=== PATIENT | male | born 1965 | race Caucasian/White ===

== ENCOUNTER 2019-11-25 20:57 | Inpatient (IN) | payer OTHER, SELFPAY ==
[2019-11-25 21:24] VITALS: BMI 38.7
[2019-11-25 21:26] VITALS: BP 131/75; PULSE 70; RESP 18; TEMP 36.6; O2SAT 96
[2019-11-25 22:10] VITALS: BP 128/77; PULSE 73; RESP 18; TEMP 36.6; O2SAT 97; BMI 38.8
[2019-11-25] MEDS: Atorvastatin Calcium 80 MG Tablet PO (22:17)
[2019-11-25] MEDS: Carvedilol 25 MG Tablet PO (22:17)
[2019-11-25] MEDS: traZODone 50 MG Tablet PO (22:17)
[2019-11-25] MEDS: Senna/Docusate Sodium 1 Tablet 2 TABLET PO (22:18)
[2019-11-25 22:30] VITALS: PULSE 73; BMI 38.7
[2019-11-25] MEDS: hydrALAZINE 25 MG Tablet PO (22:30)
[2019-11-25] MEDS: MELATONIN 10 MG TABLET 5 MG PO (22:31)
[2019-11-26] VITALS (8 sets, daily range): BP systolic 129–163; BP diastolic 75–109; PULSE 58–66; RESP 18; TEMP 36.5–36.8; O2SAT 94–98; BMI 38.7
[2019-11-26 05:44] LABS: Hematocrit 47.1 % (40-54); Hemoglobin 15.1 g/dL (13.0-16.5); Mean Corp Hgb Conc 32.1 g/dL (32-36); Mean Corpuscular Hgb 31.7 pg (27.0-32.0); Mean Corpuscular Volume 98.9 fL (80-94); Mean Platelet Vol. 9.4 fl (6.2-12.0); Platelet Count 199 K/mm3 (150-450); RBC Distribution Width CV 13.4 % (11.6-14.6); RBC Distribution Width SD 48.8 fl (35.1-43.9); Red Blood Count 4.76 M/mm3 (4.6-6.2); White Blood Count 6.8 K/mm3 (4.4-11.0)
[2019-11-26 06:12] LABS: AST(SGOT) 27 U/L (15-37); Alanine Aminotransfer ALT/SGPT 53 U/L (16-61); Alkaline Phosphatase 86 U/L (45-117); Anion Gap 8 (5-15); BUN 39 mg/dL (7-18); BUN/Creat Ratio 25.7 RATIO (10-20); Calcium,Total 8.2 mg/dL (8.5-10.1); Chloride 107 mmol/L (98-107); Creatinine, Serum 1.52 mg/dL (0.70-1.30); EST Glomerular Filtration Rate 51 mL/min (>60); Est Glom Filt Rate - Afr Amer 61 mL/min (>60); Estimated Creatinine Clearance 56.03 ml/min; Globulin 2.9 g/dL (2.2-4.2); Glucose 105 mg/dL (74-106); Magnesium 2.2 mg/dL (1.6-2.6); Phosphorus 4.4 mg/dL (2.5-4.9); Potassium 2.9 mmol/L (3.5-5.1); Protein, Total 5.9 g/dL (6.4-8.2); Sodium Level 144 mmol/L (136-145)
[2019-11-26] MEDS: hydrALAZINE 25 MG Tablet PO ×3 (06:13→21:59)
--- NOTE | 2019-11-26 07:39 | HP.PCM_ITS ---
Problem List (1) Debility Status: Acute Comment: due to R cerebellar hemorraghic CVA (2) Right-sided nontraumatic intracerebral hemorrhage of cerebellum Status: Acute (3) CVA (cerebral vascular accident) Status: Chronic Comment: 2013 (4) Cardiomyopathy Status: Chronic Comment: 35-40% EF with left ventricular dilatation. + Wall motion abnormalities (5) CAD (coronary artery disease) Status: Chronic Qualifiers: Coronary Disease-Associated Artery/Lesion type: hamilton artery (6) Obesity (BMI 30-39.9) Status: Chronic (7) Chronic renal failure, stage 3 (moderate) Status: Chronic (8) Obstructive sleep apnea Status: Chronic Comment: non-compliant with PAP as an OP (9) Tremor Status: Chronic (10) Mild concentric left ventricular hypertrophy (LVH) Status: Chronic (11) Mild diastolic dysfunction Status: Chronic (12) Hypokalemia Status: Acute (13) Abnormal MRI of head Status: Acute Comment: 11/22/19 R cerebellar hemorrhage 1.6cm. Moderate cerebral atrophy and small vessel ischemic chnages of the supratentorial white matter with chronic pontine and left thalamic infarcts. History of Present Illness Date of Admission: 11/25/19 Chief Complaint: debiliity due to R cerebellar hemorrhagic CVA on 11/21/19 The patient is a 54 year old M with a past medical history of hypertension, cardiomyopathy, coronary artery disease, hypertension, obesity, chronic renal failure stage III, LATRICIA, left ventricular hypertrophy, mild diastolic dysfunction, tremor, tobacco dependence, marijuana usage and alcohol use who was admitted to the inpatient rehab unit at [facility] on 11/25/2019 with debility secondary to a hemorrhagic right cerebellar CVA on 11/21/2019. He will have therapy for > 3 hours a day to restore him at or near his prior level of Function. Tells me that he had an AK after the stroke in 2012. Has not seen a actuarial science professor and has not had a stress. It sounds like a cath was attempted and the vein was too narrow? He has a diagnosis of LATRICIA but, he has not tried CPAP because he does not think he can sleep with a mask on his face and he does not want to be bothered by cleaning it. We discussed the shelter complications with untreated sleep apnea and also the things that could be happening now. I told him that with untreated LATRICIA patients are at risk for strokes, depression, weight gain, chronic fatigue, addictions, RLS, etc. I explained that some people with sleep apnea use nasal pillows.....he said he would be willing to try. Will refer for a sleep study after DC and have him follow up with pulmonary. He will also need to follow up with cardiology for a pharmacologic stress test. Past Medical History Past Medical History (Chronic Problems): Chronic Problems CVA (cerebral vascular accident) (Chronic) 2012 Cardiomyopathy (Chronic) 35-40% EF with left ventricular dilatation. + Wall motion abnormalities CAD (coronary artery disease) (Chronic) Obesity (BMI 30-39.9) (Chronic) Chronic renal failure, stage 3 (moderate) (Chronic) Obstructive sleep apnea (Chronic) non-compliant with PAP as an OP Tremor (Chronic) Mild concentric left ventricular hypertrophy (LVH) (Chronic) Mild diastolic dysfunction (Chronic) Allergies No Known Allergies Allergy (Verified 11/25/19 21:28) Psychiatric History: No pertinent psych hx Lives: Alone, - - he is and he has 2 daughters Smoking Status: Former smoker - quit in 2012 Tobacco Use: Cigarettes Alcohol: Heavy - he drinks 1 beer a day when he gets home from work. Drugs: Marijuana - usually once a day at work to calm me down - *Family History Maternal History Items: - - his mother was bipolar and she committed suicide Paternal History Items: Cancer - Tray does not know the primary site. Father also had a dysrhythmia, - - Paternal grandmother had a stroke and the paternal grandfather had psychosis. Sibling History Items: - - he has 2 sisters with bipolar disorder and 1 brother who is an alcoholic and may be bipolar also. Heart disease runs in the family. Review of Systems Constitutional: Denies: Anorexia, Chills, Fever, Malaise, Weight Change Eyes: Denies: Blurred vision, Vision Change HEENT: Denies: Difficulty Hearing, Difficulty Swallowing, Head Aches, Nasal Congestion, Post Nasal Drip, Sinus Congestion, Sinus Drainage, Sore Throat Cardiovascular: Denies: Chest Pain, Chest Pressure, Chest Tightness, Edema, Light Headedness, Palpitations, Syncope Respiratory: Denies: Cough, Shortness of breath at rest, Sputum production Gastrointestinal: Denies: Abdominal Pain, Constipation, Diarrhea, Dyspepsia, Nausea, Vomiting Genitourinary: Reports: Nocturia - every 2 hours at night. Denies: Dysuria, Frequency, Incontinence Musculoskeletal: Reports: - - his Right leg and arm feel tight. Denies: Joint Pain, Joint Tenderness Skin: Denies: Dryness, Jaundice, Rash, Skin Changes, Wounds Neurological: Reports: Numbness - his right face, arm and leg have been numb since the stroke in 2012. His gait has not been normal sinvce the stroke in 2013 but he is able to compensate. He does not use an AD and his co-workers make fun of his walking. He is still employed corporate accountant as a slag worker., Tremor. Denies: Focal weakness, Tingling, Seizures Psychiatric: Denies: Anxiety, Depression, Homicidal Ideations, Suicidal Ideations Endocrine: Denies: Heat/ Cold Intolerance, Polydipsia, Hx of Irradiation, Hx of Thyroiditis Hematologic/ Lymphatic: Denies: Easy Bruising, Easy Bleeding, Hx of blood clot VTE Information - Inpt Only VTE Present on Admission: No VTE Mechan Device Prophylaxis: SCD's - pt declined to wear the SCD's...not on pharmocologic DVT prophylaxis due to hemorrhagic CVA, Knee High JONELLE Hose Patient Problems: Active and Suspected Problems Debility (Acute) due to R cerebellar hemorraghic CVA Right-sided nontraumatic intracerebral hemorrhage of cerebellum (Acute) Hypokalemia (Acute) Abnormal MRI of head (Acute) 11/22/19 R cerebellar hemorrhage 1.6cm. Moderate cerebral atrophy and small vessel ischemic chnages of the supratentorial white matter with chronic po ntine and left thalamic infarcts. - Physical Exam Vitals/I&O's: Vital Signs Temp Pulse Resp BP Pulse Ox 97.7 F L 58 L 18 137/75 H 94 11/26/19 07:26 11/26/19 07:26 11/26/19 07:26 11/26/19 07:26 11/26/19 07:26 Oxygen Delivery Method Room Air Weight: 270 lb 1.06 oz Body Mass Index (BMI) 38.7 Orthostatic Vital Signs Start: 11/26/19 00:28 Freq: X1 Status: Active Protocol: Activity Type Activity Date Activity User E-Sign Co-Sign Detail Recorded Client Recorded Date Recorded By Document 11/26/19 00:29 CAK [id number] 11/26/19 06:27 CAK 11/26/19 00:29 Orthostatic Vitals Standing -Blood Pressure (90/60-120/80 mm Hg) 163/109 H -Extremity Use Right Arm -Pulse Rate (60-100 beats/min) 65 Sitting -Blood Pressure (90/60-120/80 mm Hg) 137/87 H -Extremity Use Right Arm -Pulse Rate (60-100 beats/min) 62 Lying -Blood Pressure (90/60-120/80 mm Hg) 158/97 H -Extremity Use Right Arm -Pulse Rate (60-100 beats/min) 64 Intake and Output for Last 24 Hours 11/24/19 11/25/19 11/26/19 23:59 23:59 23:59 Intake Total 200 / 200 Output Total 1300 / 1300 Balance -1100 / -1100 General: Alert, Oriented x3, Cooperative, No apparent distress, Well developed, Well nourished HEENT: PERRLA, EOMI, Normocephalic, - - small bump on the head from the fall Oral: No Gingival or Mucosal Lesions/ Ulcerations, Dry Mucosa Neck: Supple, No JVD, Negative Carotid Bruits, No Nodes, Trachea Midline, - - Carotids have brisk upstroke and good pulse volume. Lungs: Clear to auscultation, Diminished - likely due to body habitus Cardiovascular: Regular rate, Normal S1, Normal S2, No murmurs, No Ectopic Activity, No rub noted, No Gallop Abdomen: Bowel Sounds Present, Soft, Non Tender, Non-Distended, Obese, - - No guarding with palpation Extremities: No clubbing, No cyanosis, No edema, Capillary Refill Less than 3 Seconds, No Calf Tenderness Skin: No rashes, No breakdown Musculoskeletal: No Tenderness to Palpation of Joints or Extremities Neurological: Cranial nerves II-XII grossly intact, - - Alert: yes LOC/Orientation: How old:54 What month: November Dysarthria:no LOC Commands: Opens eyes: yes Make a fist: yes Facial palsy: no Best Gaze (horitzontal): intact Visual steel: no deficit Motor Left ARM : good strength with no drift Motor Left LE/5 Motor Right ARM: 5/5 Motor Right LE/5 Sensation: decreased R face, armm and leg Limb ataxia: only with gait Visual steel: intact Neglect: no neglect Babinski: did not test I observed him walking and he is ataxic with the R leg. Psych/Mental Status: Normal Affect, Appropriate, - - he got very emotional when talking about his mother Laboratory Results 11/26/19 05:30: WBC 6.8, RBC 4.76, Hgb 15.1, Hct 47.1, MCV 98.9 H, MCH 31.7, MCHC 32.1, RDW Std Deviation 48.8 H, RDW Coeff of Lane 13.4, Plt Count 199, MPV 9.4 11/26/19 05:30: Sodium 144, Potassium 2.9 L, Chloride 107, Carbon Dioxide 29.0, Anion Gap 8, BUN 39 H, Creatinine 1.52 H, Estim Creat Clear Calc 56.03, Est GFR (MDRD) Af Amer 61, Est GFR (MDRD) Non-Af 51 L, BUN/Creatinine Ratio 25.7 H, Glucose 105, Calcium 8.2 L, Phosphorus 4.4, Magnesium 2.2, Total Bilirubin 0.30, AST 27, ALT 53, Alkaline Phosphatase 86, Total Protein 5.9 L, Albumin 3.0 L, Globulin 2.9, Albumin/Globulin Ratio 1.0 Current Medications Acetaminophen (Tylenol) 650 mg PO Q6H PRN PRN PRN Reason: Pain Score 1-10/10 Amlodipine Besylate (Norvasc) 10 mg PO DAILY [facility] Atorvastatin Calcium (Lipitor) 80 mg PO QHS [facility] Last Admin: 11/25/19 22:17 Dose: 80 mg Documented by: Bisacodyl (Dulcolax) 10 mg RECTAL .PRN X 1 PRN PRN Reason: Constipation Carvedilol (Coreg) 25 mg PO BID [facility] Last Admin: 11/25/19 22:17 Dose: 25 mg Documented by: Hydralazine HCl (Apresoline) 25 mg PO TID [facility] Last Admin: 11/26/19 06:13 Dose: 25 mg Documented by: Magnesium Hydroxide (Milk Of Magnesia) 30 ml PO .PRN X 1 PRN PRN Reason: Constipation Meclizine HCl (Antivert) 25 mg PO Q6H PRN PRN PRN Reason: Vertigo Melatonin (Melatonin) 5 mg PO QHS [facility] Last Admin: 11/25/19 22:31 Dose: 5 mg Documented by: Nitroglycerin (Nitrostat) 0.4 mg SUBLINGUAL Q5M PRN PRN Reason: CARDIAC/CHEST PAIN Ondansetron HCl (Zofran Odt) 4 mg PO Q6H PRN PRN PRN Reason: NAUSEA Potassium Chloride (K-Dur) [facility] Senna/Docusate Sodium (Senokot-S, Chasity-Colace) 2 tablet PO BID [facility] Last Admin: 11/25/19 22:18 Dose: 2 tablet Documented by: Trazodone HCl (Desyrel) 50 mg PO QHS PRN PRN PRN Reason: SLEEP Assessment/Plan All Active Problems Debility (Acute) Right-sided nontraumatic intracerebral hemorrhage of cerebellum (Acute) Hypokalemia (Acute) Abnormal MRI of head (Acute) Impressions 1. Acute debility post R cerebellar hemorrhagic infarct with chronic pontine and Left thalamic infarcts 2. Acute R cerebellar hemorrhagic infarct 3. HTN 4. CRF stage 3 - he states this was due to a medication he was given for his heart after AK but, he does not know the name of the medication 5. tobacco dependence in remission. Quit in 2012. 6. Hypokalemia - likely due to HCTZ which has been discontinued. If LE edema becomes a problem will use Lasix in light of the CM. will supplement 7. LATRICIA per notes from OSH. Has never tried CPAP and was unaware of the complications due to untreated sleep apnea 8. Obesity 9. dry MM with increased BUN/CREAT ratio with high normal HGB....clinically dehydrated - instructed to increase the fluid intake. HCTZ discontinued 10. CAD with wall motion abnormalities on ECHO. Hs a hx of AK in the past. No stents and no actuarial science professor 11. CM with a 35-40% EF 12. chronic tremor of the RUE 13. nocturia - possibly due to BPH? Post void residual is 57. REHAB PLAN: PT for gait stability OT for ADLs Analgesics as needed Bowel protocol Fall precautions Assess for anxiety/depression No need for GI prophylaxis at this time DVT prophylaxis with JONELLE hose and SCDs. Patient declines to wear the SCDs and he was made aware that this puts him at risk for DVT. Follow-up with neurology post discharge. Follow-up with cardiology post discharge. I suspect he will need a 30-day event monitor to exclude atrial fibrillation as contributing factor to the multiple pontine and thalamic infarcts. He will also need a pharmacologic stress test to evaluate for significant coronary artery disease in light of new wall motion abnormality since prior echocardiogram per the outside hospital records. Supplement potassium and recheck in a few days Goal for blood pressure is less than 130/80 Goal for LDL is less than 70 with an HDL greater than 40. He is on a high intensity statin. Oxygen at 2 L/min anytime he is sleeping. Formal sleep study as an outpatient and have him follow-up with pulmonary medicine. Consult dietitian for weight reduction diet. Also low-salt and low-fat. Request copy of CTA or MRA report from [facility]. Educate Tray while in rehab on how to manage his chronic conditions and risk for stroke, AK's and progressive renal disease if the BP is not well controlled. He was fired by his previous PCP because she wanted to see him every 3 months and he wanted her to refill prescriptions without him being seen. Stressed the importance of regular follow up for preventive medicine and to manage his multiple chronic medical issues. I wonder if the med that he states caused the renal failure is an ILAN? He should be on an ILAN with CM. Inpatient E&M: 38332 Init Hosp L3
[2019-11-26] MEDS: Carvedilol 25 MG Tablet PO ×2 (09:01→21:59)
[2019-11-26] MEDS: Senna/Docusate Sodium 1 Tablet 2 TABLET PO (09:02)
[2019-11-26] MEDS: amLODIPine 10 MG Tablet PO (09:02)
[2019-11-26 09:14] LABS: Cholesterol 194 mg/dL (200); High Density Lipoprotein 38 mg/dL; Triglycerides 172 mg/dL; Very Low Density Lipoprotein 34 mg/dL (5-40)
--- NOTE | 2019-11-26 10:13 | REHABEVAL_ITS ---
Admission Information Status Changes from Prescreening?: No changes Identified Actual Problem List:: Alteration in Sleep, Mobility Impaired, Know.Dfct/Disease Process, Know.Dfct of Medicaitons, BP, Hypertension, Alteration-Leisure Activ. Potential Problem List:: DVT, Bleeding, Infection, UTI, Aspiration, Falls, Skin Integrity, Depression Risk of Complications DVT: LMWH, JONELLE Hose, Sequential Compression Device Bleeding: Monitor Lab Values, Nursing to Teach Precautions for anti-coagulation therapy., Wound, if applicable, to be assessed every shift., Stroke patients assessed for lethargy or change in status. Infection: Clinical Staff to Monitor for S/S of infection:, S/S of infection include fever, redness, warmth, etc. Urinary Tract Infection: Monitor for frequency, burning, discomfort, or incontinence., Nursing will obtain urine sample for urinalysis and C&S when ordered. Aspiration: Clinical staff will monitor for coughing, drooling, congestion., Speech will evaluate swallowing and dsyphasia., Nursing will monitor patient swallowing during meals. Falls: Patient will be evaluated for Fall Precautions, Patient will be placed on Fall Precautions as indicated per protocol. Skin Breakdown: Nursing will assess skin daily using assessment tool., Nursing will place on Skin Breakdown Precautions as indicated. Pain: Clinical staff will assess patient's pain level per protocol., Medications will be given, if needed, and the pain level reassessed., Other methods: Massag e, distraction, decrease stimulus, etc. used PRN. Plan of Care Patient requires physician specializing in physical medicine and rehab oversight to provide close medical supervision of rehab issues including: Pain Management, Sleep Problems, Bowel and Bladder, Medical and co-morbidity Management, DVT prophylaxis, Rehabilitation Leadership, Coordination of treatment team Patient needs Physical Therapy: For a minimum of 1 hour, At least 5 out of 7 days Patient needs Physical Therapy to improve:: Mobility, Mobility, Mobility, Strengthening, Transfers, Stretching, ROM, Endurance, Stairs, Gait, Balance Patient needs Occupational Therapy: For a minimum of 1 hour, At least 5 out of 7 days Patient needs Occupational Therapy to improve ADL's incl.: Eating, Grooming, Bathing, Dressing, Toileting, Toilet transfers, Community Reintegration, Higher functioning activities, Household tasks, Adaptive Equipment, Splinting, Other activities as determined Patient requires 24/ Rehabilitation Nursing for: Pain Issues, Identifying and preventing risk factors, Monitoring and reporting current medical conditions, Assisting with ambulation, transfer, and all ADL's, Teaching patients about disease process and medications, Family teaching, Providing safe environment, Bowel and Bladder Issues, Skin integrity, Medication Management Patient needs Infection Prevention Practitioner/ Case Management for: Discharge Planning, Arranging Home Equipment or Services, Family Interventions Patient needs Dietary and Nutrition Services for: Adequate Nutrition, Nutritional Supplements, Nutritional Education Goals Patient will remain: free from falls, or injury at time of discharge. Patient will perform bed mobility at: MOD I level of assist. Patient will complete transfers from bed to chair at: MOD I level of assist. Patient will ambulate: 100 feet, with MOD I assist, with LRD Patient will complete upper body dressing at: MOD I level of assist. Patient will complete lower body dressing at: MOD I level of assist. Patient will complete toileting at: MOD I level of assist. Patient will perform bathing at: MOD I level of assist. Patient will complete grooming at: MOD I level of assist. Patient will complete home management skills at: MOD I level of assist. Patient will achieve: 12 stairs, at MOD I assist Patient will have pain level of: of 3 or less Patient's skin will: remain intact, free from infection. Patient will receive: adequate nutrition. Discharge Planning Pt Prognosis for Sig. Practical Improv. w/in Reasonable Time: Good Estimated Length of stay (days): 14 Anticipated D/C Destination: Home with Outpt Therapy
--- NOTE | 2019-11-26 14:36 | CASEMGMT ---
Social Work PHQ-9 completed - score 2. No issues. Pt does report to 1-2 beers after work daily and a little bit of marijuana before work daily. Explained [employer] insurance NRD 11/30 and continued stay is not guaranteed, and Team meeting. Will continue to follow. Kira Ramon, ESCAPEMENT MAKER WOOD INSPECTOR
[2019-11-26] MEDS: MELATONIN 10 MG TABLET 5 MG PO (21:58)
[2019-11-26] MEDS: Atorvastatin Calcium 80 MG Tablet PO (21:59)
[2019-11-27] VITALS (8 sets, daily range): BP systolic 145–146; BP diastolic 86–94; PULSE 57–66; RESP 16–18; TEMP 36.6–36.7; O2SAT 96–99; BMI 38.7
[2019-11-27] MEDS: hydrALAZINE 25 MG Tablet PO ×2 (07:15→13:52)
[2019-11-27] MEDS: Meclizine HCl 25 MG Tablet PO ×2 (08:53→16:37)
[2019-11-27] MEDS: Carvedilol 25 MG Tablet PO ×2 (08:54→21:47)
[2019-11-27] MEDS: amLODIPine 10 MG Tablet PO (08:54)
--- NOTE | 2019-11-27 14:49 | PN_ITS ---
Progress Note Afebrile BP's have ranged from 128/77 at admission to 146/91 currently. HCTZ was discontinued at admission due to dry MM and elevated creat with decreased potassium. Heart rate has ranged from 58-73 since admission. Maintaining appropriate oxygen saturation on RA. Oral intake is good Discussed with nursing - no problems that need addressed Reviewed the PT/OT/ST notes Medication list reviewed. No complaints today. Thinks his balance is getting a little better. Slept well last night. Denies chest pain, shortness of breath, nausea, vomiting, diarrhea, constipation. Alert and oriented x3, no apparent distress, appropriate, calm Mucous membranes are not quite as dry as yesterday. Lungs-clear to auscultation Heart-regular rate and rhythm, Abdomen-soft, nontender, nondistended, bowel sounds present No peripheral edema No change in neurologic exam. No calf tenderness, no rashes, no skin breakdown. Denies feeling tired when he wakes up and denies chronic fatigue. He does not snore to his knowledge. BUT, the notes from the previous hospital say he has LATRICIA? Impressions 1. Acute disability secondary to right cerebellar hemorrhage with chronic pontine and left thalamic infarcts. The fact that he has had multiple infarcts and that he has CAD with reduced EF and wall motion abnormalities makes me think he may be having PAF. He will need an event monitor and follow up with cardiology post DC. 2. LATRICIA per records from the outside hospital - will order an overnight trending pulse ox......LATRICIA is common post stroke and if untreated is a risk factor for CVA's 3. HTN - not adequately controlled - increase the hydralazine to 50 mg p.o. 3 times daily 4. Chronic renal failure stage III? Patient told me he has renal failure secondary to medication however he cannot recall the medication and I would suspect the renal failure is more likely than not due to uncontrolled hypertension 5. CAD with cardiomyopathy with a 35 to 40% EF and regional wall motion abnormalities. 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 Will need follow-up with cardiology post discharge. 6. nocturia - due to BPH? or untreated sleep apnea? STROKE Vital Signs/Narrative: Vital Signs Pulse 11/27/19 13:52 66 Inpatient E&M: [id number] Subs Hosp L2
[2019-11-27] MEDS: Atorvastatin Calcium 80 MG Tablet PO (21:47)
[2019-11-27] MEDS: MELATONIN 10 MG TABLET 5 MG PO (21:47)
[2019-11-27] MEDS: hydrALAZINE 50 MG Tablet PO (21:47)
[2019-11-28 00:10] VITALS: BMI 38.7
[2019-11-28 05:54] LABS: Anion Gap 6 (5-15); BUN 21 mg/dL (7-18); BUN/Creat Ratio 17.8 RATIO (10-20); Calcium,Total 8.1 mg/dL (8.5-10.1); Chloride 109 mmol/L (98-107); Creatinine, Serum 1.18 mg/dL (0.70-1.30); EST Glomerular Filtration Rate 68 mL/min (>60); Est Glom Filt Rate - Afr Amer 82 mL/min (>60); Estimated Creatinine Clearance 72.18 ml/min; Glucose 116 mg/dL (74-106); Potassium 3.4 mmol/L (3.5-5.1); Sodium Level 143 mmol/L (136-145)
[2019-11-28 06:03] VITALS: BP 138/96; PULSE 61
[2019-11-28] MEDS: hydrALAZINE 50 MG Tablet PO ×3 (06:03→21:02)
[2019-11-28] MEDS: Meclizine HCl 25 MG Tablet PO (06:12)
[2019-11-28 07:00] VITALS: BP 138/86; PULSE 61; RESP 18; TEMP 36.4; O2SAT 97
[2019-11-28] MEDS: amLODIPine 10 MG Tablet PO (07:54)
[2019-11-28] MEDS: Carvedilol 25 MG Tablet PO ×2 (07:55→21:02)
--- NOTE | 2019-11-28 11:42 | NURSING ---
Dr. Jimenez aware of potassium of 3.4. New order for 40mg Kdur po x1 obtained.
[2019-11-28 13:34] VITALS: BMI 38.7
[2019-11-28 14:55] VITALS: BP 145/90; PULSE 67
--- NOTE | 2019-11-28 15:24 | NURSING ---
discussed with therapy and personal alarm removed. pt voiced understanding to use call light for any needs.
--- NOTE | 2019-11-28 19:06 | PN_ITS ---
Progress Note Afebrile VSS-blood pressures remain elevated. The blood pressure today has ranged from 138/86-130 8/96. Hydralazine was increased to 50 mg 3 times daily yesterday. Pulse rate is within normal limits. Maintaining appropriate oxygen saturation on RA Oral intake is good Discussed with nursing - no problems that need addressed Reviewed the PT/OT/ST notes Medication list reviewed. All lab was personally reviewed. Potassium is still mildly decreased at 3.4 even with supplementation. The BUN is down to 21 from 39 and the creatinine today is 1.18, down from 1.52 at admission. Calcium is 8.1 and his albumin was 3.0 therefore the calcium corrected for hypoalbuminemia is 8.9 which is within normal limits. Alert, appropriate, no apparent distress Lungs-clear to auscultation, diminished, no Rales Heart-regular rate and rhythm, no gallop Abdomen-obese, soft, nontender, nondistended, normal bowel sounds No peripheral edema Impressions 1. post stroke debility 2. R cerebellar hemorrhagic CVA - acute 3. chronic Left thalamic and pontine infarcts + hx of stroke in 2013.......AF? 4. LATRICIA per records from the outside hospital however the overnight trending pulse ox did not show any significant desaturation events? 5. CM with a 35-40% EF and regional wall motion abnormalities 6. CAD with hx of [place] in 2012 - has not seen a telesales supervisor since then [place] amlodipine Start Procardia XL 30 mg twice daily. The goal for blood pressure is less than 130/80. Goal LDL is 70 or less and the current LDL is 122. He is on a high intensity s tatin. continue to hold the diuretic for now.....there is no edema and he denies orthopnea. Will refer to telesales supervisor at [place] Inpatient E&M: [id number] Subs Hosp L2
[2019-11-28 19:40] VITALS: BP 131/58; PULSE 68; RESP 18; TEMP 36.5; O2SAT 97
[2019-11-28 20:53] VITALS: BP 130/65; PULSE 60
[2019-11-28] MEDS: MELATONIN 10 MG TABLET 5 MG PO (21:00)
[2019-11-28 21:02] VITALS: BP 130/65; PULSE 60
[2019-11-28] MEDS: Atorvastatin Calcium 80 MG Tablet PO (21:02)
[2019-11-28] MEDS: NIFEdipine 30 MG Tablet PO (21:03)
--- NOTE | 2019-11-28 21:13 | NURSING ---
PER NURSING COMMUNICATION -TRIED TO APPLY 2 L NC FOR HS. PT REFUSED.
[2019-11-29 04:20] VITALS: BMI 38.7
[2019-11-29 06:48] VITALS: BP 137/84; PULSE 62
[2019-11-29] MEDS: hydrALAZINE 50 MG Tablet PO ×3 (06:48→21:00)
--- NOTE | 2019-11-29 07:20 | PCA ---
asked pt. if he would like to get dressed this AM. pt. states he doesn't want male care and prefers to get dressed after breakfast.
[2019-11-29] MEDS: Carvedilol 25 MG Tablet PO ×2 (07:47→21:00)
[2019-11-29] MEDS: NIFEdipine 30 MG Tablet PO ×2 (07:47→21:01)
[2019-11-29 08:47] VITALS: BP 137/84; PULSE 62; RESP 16; TEMP 36.6; O2SAT 97
--- NOTE | 2019-11-29 09:30 | NURSING ---
Dr. Jimenez aware of patient refusal of TEDS, SCD's, and oxygen at night. Patient has been educated on the importance of them but continues to refuse.
[2019-11-29] MEDS: Meclizine HCl 25 MG Tablet PO (09:42)
[2019-11-29 14:56] VITALS: BMI 38.7
[2019-11-29 15:38] VITALS: PULSE 82
--- NOTE | 2019-11-29 15:51 | PCM.PN.BLA ---
Progress Note Amlodipine was discontinued on 11/28/2019 and he was started on 30 mg of Procardia XL twice daily with the first dose last evening. Blood pressures since last evening have ranged from 130/65-137/84. Heart rate is ranged from 60-82 today. He is maintaining appropriate oxygen saturation on room air. The overnight trending pulse ox showed no desaturation events less than 88% for longer than 60 seconds. Denies lightheadedness, SOB, orthopnea, CP, cephalgia. Alert, NAD Lungs - CTA HRRR abd - soft, NT, ND no calf tenderness No ankle edema Impressions 1. HTN - coming under better control with adjustments in the medications 2. Suspected AF - needs to follow up with cardiology post discharge 3. CM with WMA - needs a stress. Continue therapy and education of the importance of BP control, lipid control and regular follow up with PCP. STROKE Vital Signs/Narrative: Vital Signs Pulse 11/29/19 15:38 82 Inpatient E&M: [id number] Subs Hosp L1
[2019-11-29 18:54] VITALS: BP 157/81; PULSE 61; RESP 18; TEMP 36.6; O2SAT 97
[2019-11-29 21:00] VITALS: PULSE 66
[2019-11-29] MEDS: MELATONIN 10 MG TABLET 5 MG PO (21:00)
[2019-11-29] MEDS: Atorvastatin Calcium 80 MG Tablet PO (21:00)
[2019-11-29 21:07] VITALS: BMI 38.7
[2019-11-29 22:00] VITALS: PULSE 65; RESP 17; O2SAT 97
[2019-11-30 06:54] VITALS: PULSE 66
[2019-11-30] MEDS: hydrALAZINE 50 MG Tablet PO ×3 (06:54→20:37)
[2019-11-30 08:31] VITALS: BP 122/89; PULSE 64; RESP 16; TEMP 36.5; O2SAT 97
[2019-11-30] MEDS: Carvedilol 25 MG Tablet PO ×2 (08:33→20:37)
[2019-11-30] MEDS: NIFEdipine 30 MG Tablet PO ×2 (08:33→20:37)
[2019-11-30 09:13] VITALS: BMI 38.7
[2019-11-30 13:37] VITALS: PULSE 80
--- NOTE | 2019-11-30 16:03 | NURSING ---
pt ambulated hallways x2 laps using x1 assist with wheeled walker, tolerated well.
[2019-11-30 19:20] VITALS: BP 153/96; PULSE 62; RESP 18; TEMP 36.6; O2SAT 95
[2019-11-30 20:32] VITALS: BMI 38.7
[2019-11-30 20:37] VITALS: PULSE 66
[2019-11-30] MEDS: Atorvastatin Calcium 80 MG Tablet PO (20:37)
[2019-11-30] MEDS: MELATONIN 10 MG TABLET 5 MG PO (20:37)
[2019-11-30 20:39] VITALS: PULSE 65; RESP 17; O2SAT 96
[2019-12-01 06:04] VITALS: PULSE 65
[2019-12-01] MEDS: hydrALAZINE 50 MG Tablet PO ×3 (06:04→20:42)
[2019-12-01 06:11] LABS: Albumin, Serum 2.7 g/dL (3.2-5.0); Anion Gap 8 (5-15); BUN 25 mg/dL (7-18); BUN/Creat Ratio 21.9 RATIO (10-20); Calcium,Total 8.4 mg/dL (8.5-10.1); Chloride 108 mmol/L (98-107); Creatinine, Serum 1.14 mg/dL (0.70-1.30); EST Glomerular Filtration Rate 70 mL/min (>60); Est Glom Filt Rate - Afr Amer 85 mL/min (>60); Estimated Creatinine Clearance 74.71 ml/min; Glucose 116 mg/dL (74-106); Magnesium 2.1 mg/dL (1.6-2.6); Potassium 3.6 mmol/L (3.5-5.1); Sodium Level 139 mmol/L (136-145)
--- NOTE | 2019-12-01 06:34 | NURSING ---
Pt emphatically refused any a.m. ADLs and offer to shower. Pt refused staff attempt to straighten up bedding on bed for the day. Pt stated that everything is fine just the way it is and did not want bed made for the day.
[2019-12-01 07:00] VITALS: BP 131/58; PULSE 62; RESP 18; TEMP 36.8; O2SAT 96
[2019-12-01] MEDS: Meclizine HCl 25 MG Tablet PO (09:21)
[2019-12-01] MEDS: Carvedilol 25 MG Tablet PO ×2 (09:22→20:42)
[2019-12-01] MEDS: NIFEdipine 30 MG Tablet PO ×2 (09:22→20:43)
--- NOTE | 2019-12-01 10:39 | PCM.PN.BLA ---
Progress Note Tray was seen on team rounds today. His daughter and sister participated by phone. Afebrile VSS - BP is erratic.....it is for the most part controlled. He has been c/o not sleeping well but, has not been taking the Trazodone that is ordered PRN. Maintaining appropriate oxygen saturation on RA Oral intake is very good Discussed with nursing - no problems that need addressed Reviewed the PT/OT notes - he is progressing well. Has difficulty with short term memory Medication list reviewed. All lab was personally reviewed. Potassium is normal at 3.6. BUN is 25 with a creatinine of 1.14. Alert, appropriate, oriented x3, no apparent distress, pleasant Lungs-clear to auscultation throughout with good air exchange, no rales Heart-regular rate and rhythm, no murmur, no gallop, no ectopy Abdomen-obese, soft, nontender, nondistended, bowel sounds present No peripheral edema No calf tenderness He observed him walking and he still has some ataxia with the right lower extremity with occasional loss of balance. Impressions 1. Debility secondary to recent right cerebellar hemorrhage 2. Chronic lacunar infarcts of the thalamus and aleksandra 3. Cardiomyopathy with a 35- 40% ejection fraction 4. Suspected atrial fibrillation 5. Hypertension-better controlled 6. Reported stage III chronic renal failure however with discontinuation of the hydrochlorothiazide the creatinine is improved and his GFR is 70. He has no symptoms of congestive heart failure. Continue to hold hydrochlorothiazide Continue therapy Refer to cardiology and neurology at discharge 30-day event monitor at discharge. STROKE Vital Signs/Narrative: Vital Signs Temp Pulse Resp BP Pulse Ox 12/01/19 07:00 98.2 F 62 18 131/58 H 96 Inpatient E&M: 33839 Subs Hosp L2
[2019-12-01 14:04] VITALS: BMI 38.7
--- NOTE | 2019-12-01 14:06 | CASEMGMT ---
Social Work IDT met with patient, dtr and sister via conference call for Team Meeting. Discussed patient's progress in therapy. Pt is set up for all ADLs, SBA for transfers, walking 165-200 ft with no device CGA on multiple surfaces, completed 5 steps with 2 HR at SBA. Pt is working on higher level IADLS. Still having some difficulty maintaining gait. Therapy recommending using cane at home for stability. Pt having some sleeping issues - adjusted meds, exchanged beds. BS now controlled. Recommending f/ with cardiology at [place]. Explained insurance with [employer] 11/30 and continued stay is not guaranteed. Recommending a few more days of therapy to work on strength and stability. Pt will return home alone with dtr and sister support and continued therapy. Will continue to follow. ANNALISA CanalesW
[2019-12-01 14:48] VITALS: PULSE 70
[2019-12-01 20:42] VITALS: PULSE 65
[2019-12-01] MEDS: Atorvastatin Calcium 80 MG Tablet PO (20:42)
[2019-12-01] MEDS: MELATONIN 10 MG TABLET 5 MG PO (20:42)
[2019-12-01] MEDS: traZODone 50 MG Tablet PO (20:42)
[2019-12-01 20:47] VITALS: BP 143/70; PULSE 65; RESP 16; TEMP 36.6; O2SAT 97
[2019-12-01 23:50] VITALS: BMI 38.7
[2019-12-02 06:31] VITALS: PULSE 60
[2019-12-02] MEDS: hydrALAZINE 50 MG Tablet PO ×3 (06:31→20:52)
[2019-12-02] MEDS: Meclizine HCl 25 MG Tablet PO (06:33)
[2019-12-02] MEDS: Acetaminophen 325 MG Tablet 650 MG PO (06:51)
[2019-12-02 08:45] VITALS: BP 153/85; PULSE 71; RESP 18; TEMP 36.4; O2SAT 97
[2019-12-02] MEDS: NIFEdipine 30 MG Tablet PO ×2 (09:23→20:51)
[2019-12-02] MEDS: Carvedilol 25 MG Tablet PO ×2 (09:23→20:52)
--- NOTE | 2019-12-02 10:41 | CASEMGMT ---
Social Work Insurance approved pt with [employer] 11/07 and continued stay is not guaranteed. Spoke with pt whom is requesting to DC home 12/03. IDT agreeable. Pt requesting outpatient therapy at [facility] - referral made for PT/OT. Referral made to [facility] for cane. Spoke with dtr whom is agreeable to DC and can potato picker pt. Plan: DC home alone with family support 12/03, [facility] PT/OT, [facility] - cane. Kira Ramon, VEHICLE B[employer] S[employer]ER PATTERN MAKER
[2019-12-02 11:20] VITALS: BMI 38.7
[2019-12-02 13:53] VITALS: PULSE 88
--- NOTE | 2019-12-02 15:19 | PCM.PN.BLA ---
Progress Note Afebrile Vital signs stable Maintaining appropriate oxygen saturation on room air Has never had a formal sleep study so I am unclear how he carries a dx of LATRICIA? Overnight trending pulse ox done in rehab unit showed no desaturation < 88% for > 50 sec. sleeping better with the Trazodone scheduled Alert, NAD, sitting in the recliner, pleasant Lungs - CTA H - RRR abd - soft, NT, ND, BS present. Regular BM's no peripheral edema, no calf tenderness Impression 1. post stroke debility 2. no significant stenosis on CTA of the head and the neck however there was poor opacification of the intracerebral arteries 3. hx of MIin the past 4. CM - no signs of CHF off the HCTZ 5. suspect he may have PAF since he has infarcts in the left thalamus and the aleksandra as well as the recent R cerebellar hemorrhage which I suspect may be due to uncontrolled HTN Calcium corrected for hypoalbuminemia is WNL We talked about the CM and the multiple areas of previous stroke and he is agreeable to following up with [facility]. He will also follow up with a neurologist. He lives in [place] and we will try and find a neurologist in [place]. Planned DC is . He will be discharged home with OP PT/OT. continue to hold the HCTZ because kidney function has improved with holding the diuretic. The BP is still at mildly elevated at times but, he has only been on the Procardia for a few days and we need to get to a steady state prior to making any adjustments. STROKE Vital Signs/Narrative: Vital Signs Pulse 12/02/19 13:53 88 Inpatient E&M: [id number] Subs Hosp L2
[2019-12-02] MEDS: MELATONIN 10 MG TABLET 5 MG PO (20:51)
[2019-12-02] MEDS: Atorvastatin Calcium 80 MG Tablet PO (20:51)
[2019-12-02 20:52] VITALS: PULSE 61
[2019-12-02] MEDS: traZODone 50 MG Tablet PO (20:52)
[2019-12-02 20:57] VITALS: BP 140/92; PULSE 64; RESP 17; TEMP 36.6; O2SAT 97
[2019-12-02 21:01] VITALS: BMI 38.7
[2019-12-02 22:00] VITALS: RESP 17; O2SAT 97
[2019-12-03 05:56] VITALS: PULSE 70
[2019-12-03] MEDS: hydrALAZINE 50 MG Tablet PO ×3 (05:56→19:47)
[2019-12-03] MEDS: NIFEdipine 30 MG Tablet PO ×2 (08:21→19:48)
[2019-12-03] MEDS: Carvedilol 25 MG Tablet PO ×2 (08:21→19:48)
[2019-12-03 08:25] VITALS: BP 144/84; PULSE 70; RESP 16; TEMP 36.5; O2SAT 96
[2019-12-03] MEDS: Meclizine HCl 25 MG Tablet PO (08:54)
[2019-12-03 11:02] VITALS: BMI 38.7
[2019-12-03 14:29] VITALS: PULSE 70
[2019-12-03 19:22] VITALS: BP 131/61; PULSE 69; RESP 16; TEMP 36.6; O2SAT 99
[2019-12-03 19:44] VITALS: BMI 38.7
[2019-12-03 19:47] VITALS: PULSE 68
[2019-12-03] MEDS: Atorvastatin Calcium 80 MG Tablet PO (19:48)
[2019-12-03] MEDS: traZODone 50 MG Tablet PO (19:48)
[2019-12-03] MEDS: MELATONIN 10 MG TABLET 5 MG PO (19:49)
[2019-12-04 06:22] VITALS: PULSE 66
[2019-12-04] MEDS: hydrALAZINE 50 MG Tablet PO (06:22)
[2019-12-04 09:07] VITALS: PULSE 66; RESP 16; TEMP 36.6; O2SAT 94
--- NOTE | 2019-12-04 10:35 | DCINST_ITS ---
- Discharge Diagnoses Current Active Problems: Current Active and Chronic Problems Debility (Acute) due to R cerebellar hemorraghic CVA Right-sided nontraumatic intracerebral hemorrhage of cerebellum (Acute) CVA (cerebral vascular accident) (Chronic) 2012 Cardiomyopathy (Chronic) 35-40% EF with left ventricular dilatation. + Wall motion abnormalities CAD (coronary artery disease) (Chronic) Obesity (BMI 30-39.9) (Chronic) Chronic renal failure, stage 3 (moderate) (Chronic) Obstructive sleep apnea (Chronic) non-compliant with PAP as an OP Tremor (Chronic) Mild concentric left ventricular hypertrophy (LVH) (Chronic) Mild diastolic dysfunction (Chronic) Hypokalemia (Acute) Abnormal MRI of head (Acute) 11/22/19 R cerebellar hemorrhage 1.6cm. Moderate cerebral atrophy and small vessel ischemic chnages of the supratentorial white matter with chronic pontine and left thalamic infarcts. You will use the following diet at home:: Cardiac - low salt, low fat Your food should be the consistency of: Regular Your liquids should be the consistency of: Regular/Thin Discharge Activity: May Drive, May Shower Weight Bearing Status: Full weight bearing Call your doctor if you observe: Fever of 101 or Higher, Inability to urinate, Inability to have a bowel movement, Shortness of breath, Dizziness, Fainting spells, Swelling in the ankles, Chest pain, Increased palpitations (irregular heartbeat), Calf discomfort, - - Go the ED or call 911 immediately if sudden onset: 1. facial droop 2. slurred speech or inability to get words out 3. weakness or numbness on 1 side of the face, arm or leg. 4. vertigo or room spinning 5. loss of vision or trouble seeing in one eye 6. Confusion 7. Trouble walking or maintaining balance and trouble with coordination 8. Sudden severe headache with no known cause Instructions: What Is Atrial Flutter/Atrial Fibrillation?, Cardiomyopathy Additional Instructions: 1. We made some adjustments in your medications for blood pressure. You will no longer be taking the hydrochlorothiazide (HCTZ). This is a diuretic and it was affecting your kidney function which has improved with the discontinuation of this medication. Some people with Cardiomyopathy need a diuretic but you have been doing well without. That being said you have been on a low salt diet. If your salt intake increases at home you may need a diuretic. Signs that you need to cut back on fluids, cut back on salt or start on a diuretic include shortness of breath with exertion, swelling in the ankles, shortness of breath when you lie down, increasing weight. You should be weighing yourself every morning without clothes on after urinating and keeping a record of your weights. 2. You have actually had several strokes. The most recent stroke was due to a blood vessel bursting and these are generally due to uncontrolled high blood pressure. The other strokes are due to ischemia....this means that you have atherosclerosis of the blood vessels in the brain or that you had clots that went to the brain. It is for this reason that I think you may have atrial fibrillation. I have given you some literature to read on atrial fibrillation so you understand better what it is and why is is important to know. 2. I have given you some material to read about cardiomyopathy. Basically this means that your heart does not squeeze as well as it should. In a normal heart every time it beats it squeezes 55-65% of the blood out. Your heart squeezes out 35-40%. If you increase the amount of of salt you eat or the BP is too high then you may retain water and then the water will build up in your lungs and you will be short of breath, gaining weight and start to see swelling in the ankles. 4. The cane is to help increase the sensory input to your brain about where your feet are. You had a stroke in the cerebellum. The cerebellum helps control balance and when the stroke affects the cerebellum on 1 side then the different sides of the body send diffferent messages to the brain and balance becomes an issue......it can also cause vertigo because 1 side of the brain is telling you are in the attic and the other side is telling you you are in the basement. The cane transfers some of the balance information to the hand through the cane and the brain gets more information and so you will have less balance issues. IT helps to prevent falls. There is no shame in a cane....use it. 5. We made you an appt to see Dr. Huntley from cardiology.......I really like him. He is down to earth and soft spoken. He is also conservative and will not be ordering a lot of tests you don't need. 6. It was a pleasure to meet you Tray. If you have any questions after you leave my offfice number is [phone]. My cell is [phone]. Take good care of yourself so you can prevent future strokes or heart attacks. Pending Tests on Discharge: none Allergies/Adverse Reactions: Allergies No Known Allergies Allergy (Verified 11/25/19 21:28) Medications to take at Discharge Acetaminophen [Tylenol Tablet] 650 mg PO Q6H PRN PRN tablet 12/04/19 Atorvastatin Calcium [Lipitor] 80 mg PO QHS #30 tablet 12/04/19 Carvedilol [Coreg (Beta Nuvia)] 25 mg PO BID #60 tablet 12/04/19 Meclizine HCl [Antivert] 25 mg PO Q6H PRN PRN #30 tab 12/04/19 Nifedipine [Procardia Xl] 30 mg PO BID #60 tab.er.24 12/04/19 Nitroglycerin (INPATIENT USE) [Nitrostat] 0.4 mg SUBLINGUAL Q5M PRN #1 bottle 12/04/19 hydrALAZINE [Apresoline] 50 mg PO TID #90 tab 12/04/19 traZODone [Desyrel] 50 mg PO QHS #30 tab 12/04/19 The following prescriptions were given: Meclizine HCl [Antivert] 25 mg PO Q6H PRN PRN #30 tab PRN Reason: Vertigo Transmission Status: Pending to [facility] hydrALAZINE [Apresoline] 50 mg PO TID #90 tab Transmission Status: Pending to [facility] Carvedilol [Coreg (Beta Nuvia)] 25 mg PO BID #60 tablet traZODone [Desyrel] 50 mg PO QHS #30 tab Transmission Status: Pending to [facility] Atorvastatin Calcium [Lipitor] 80 mg PO QHS #30 tablet Nitroglycerin (INPATIENT USE) [Nitrostat] 0.4 mg SUBLINGUAL Q5M PRN #1 bottle PRN Reason: Cardiac/Chest Pain Transmission Status: Pending to [facility] Nifedipine [Procardia Xl] 30 mg PO BID #60 tab.er.24 Transmission Status: Pending to [facility] Primary Care Physician: Maribel Lanza, [Primary Care Provider] - Test Results: Test results from this visit will be discussed in further detail at your follow- up appointment, if applicable. Please Follow Up With: Dr Chilango Mckeon-neuro Please Follow Up With: Dr Maribel Crowe-PCP Please Follow Up With: Dr Delgado-trains dispatcher supervisor Proposed Discharge Date: 12/04/19
[2019-12-04] MEDS: Carvedilol 25 MG Tablet PO (10:44)
[2019-12-04] MEDS: NIFEdipine 30 MG Tablet PO (10:44)
[2019-12-04 11:17] VITALS: BP 138/84; PULSE 66; RESP 16; TEMP 36.6; O2SAT 94
--- NOTE | 2019-12-04 11:18 | DS.PCM_ITS ---
Discharge Date and Diagnosis - Problem List Patient Problems: Active and Suspected Problems Debility (Acute) due to R cerebellar hemorraghic CVA Right-sided nontraumatic intracerebral hemorrhage of cerebellum (Acute) Hypokalemia (Acute) Abnormal MRI of head (Acute) 11/22/19 R cerebellar hemorrhage 1.6cm. Moderate cerebral atrophy and small vessel ischemic chnages of the supratentorial white matter with chronic pontine and left thalamic infarcts. Date of Admission: 11/25/19 Date of Discharge: 12/04/19 - Primary Discharge Diagnosis Acute Problems: Active Problems Debility (Acute) due to R cerebellar hemorrhagic CVA Right-sided nontraumatic intracerebral hemorrhage of cerebellum (Acute) Hypokalemia (Acute)-resolved Abnormal MRI of head (Acute) 11/22/19 R cerebellar hemorrhage 1.6cm. Moderate cerebral atrophy and small vessel ischemic changes of the supratentorial white matter with chronic pontine and left thalamic infarcts. Suspected Problems: Atrial fibrillation - Secondary Discharge Diagnosis Chronic Problems: Chronic Problems CVA (cerebral vascular accident) (Chronic) 2013 Cardiomyopathy (Chronic) 35-40% EF with left ventricular dilatation. + Wall motion abnormalities CAD (coronary artery disease) (Chronic) Obesity (BMI 30-39.9) (Chronic) Chronic renal failure, stage 3 (moderate) (Chronic)? Resolved with the discontinuation of HCTZ Obstructive sleep apnea (Chronic)? - Not sure how this diagnosis was made....he denies ever having a sleep study and the overnight trending pulse ox in the rehab unit did not show any significant desaturations Tremor (Chronic) - since the first stroke Mild concentric left ventricular hypertrophy (LVH) (Chronic) Mild diastolic dysfunction (Chronic) Hospital Course and Treatment Imaging Results: Laboratory Tests 12/01/19 11/28/19 11/26/19 Range/Units 05:40 05:15 05:30 WBC (4.4-11.0) K/mm3 RBC (4.6-6.2) M/mm3 Hgb (13.0-16.5) g/dL Hct (40-54) % MCV (80-94) fL MCH (27.0-32.0) pg MCHC (32-36) g/dL RDW Std Deviation (35.1-43.9) fl RDW Coeff of Lane (11.6-14.6) % Plt Count (150-450) K/mm3 MPV (6.2-12.0) fl Sodium 139 143 (136-145) mmol/L Potassium 3.6 3.4 L (3.5-5.1) mmol/L Chloride 108 H 109 H (98-107) mmol/L Carbon Dioxide 23.0 28.0 (21.0-32.0) mmol/L Anion Gap 8 6 (5-15) BUN 25 H 21 H (7-18) mg/dL Creatinine 1.14 1.18 (0.70-1.30) mg/dL Estim Creat Clear Calc 74.71 72.18 ml/min Est GFR (MDRD) Af Amer 85 82 (>60) mL/min Est GFR (MDRD) Non-Af 70 68 (>60) mL/min BUN/Creatinine Ratio 21.9 H 17.8 (10-20) RATIO Glucose 116 H 116 H (74-106) mg/dL Calcium 8.4 L 8.1 L (8.5-10.1) mg/dL Phosphorus (2.5-4.9) mg/dL Magnesium 2.1 (1.6-2.6) mg/dL Total Bilirubin (0.20-1.00) mg/dL AST (15-37) U/L ALT (16-61) U/L Alkaline Phosphatase (45-117) U/L Total Protein (6.4-8.2) g/dL Albumin 2.7 L (3.2-5.0) g/dL Globulin (2.2-4.2) g/dL Albumin/Globulin Ratio (0.9-2.4) RATIO Triglycerides 172 ( - 199) mg/dL Cholesterol 194 (200) mg/dL LDL Cholesterol 122 (0-130) mg/dL VLDL Cholesterol 34 (5-40) mg/dL HDL Cholesterol 38 L (40 - ) mg/dL 11/26/19 11/26/19 Range/Units 05:30 05:30 WBC 6.8 (4.4-11.0) K/mm3 RBC 4.76 (4.6-6.2) M/mm3 Hgb 15.1 (13.0-16.5) g/dL Hct 47.1 (40-54) % MCV 98.9 H (80-94) fL MCH 31.7 (27.0-32.0) pg MCHC 32.1 (32-36) g/dL RDW Std Deviation 48.8 H (35.1-43.9) fl RDW Coeff of Lane 13.4 (11.6-14.6) % Plt Count 199 (150-450) K/mm3 MPV 9.4 (6.2-12.0) fl Sodium 144 (136-145) mmol/L Potassium 2.9 L (3.5-5.1) mmol/L Chloride 107 (98-107) mmol/L Carbon Dioxide 29.0 (21.0-32.0) mmol/L Anion Gap 8 (5-15) BUN 39 H (7-18) mg/dL Creatinine 1.52 H (0.70-1.30) mg/dL Estim Creat Clear Calc 56.03 ml/min Est GFR (MDRD) Af Amer 61 (>60) mL/min Est GFR (MDRD) Non-Af 51 L (>60) mL/min BUN/Creatinine Ratio 25.7 H (10-20) RATIO Glucose 105 (74-106) mg/dL Calcium 8.2 L (8.5-10.1) mg/dL Phosphorus 4.4 (2.5-4.9) mg/dL Magnesium 2.2 (1.6-2.6) mg/dL Total Bilirubin 0.30 (0.20-1.00) mg/dL AST 27 (15-37) U/L ALT 53 (16-61) U/L Alkaline Phosphatase 86 (45-117) U/L Total Protein 5.9 L (6.4-8.2) g/dL Albumin 3.0 L (3.2-5.0) g/dL Globulin 2.9 (2.2-4.2) g/dL Albumin/Globulin Ratio 1.0 (0.9-2.4) RATIO Triglycerides ( - 199) mg/dL Cholesterol (200) mg/dL LDL Cholesterol (0-130) mg/dL VLDL Cholesterol (5-40) mg/dL HDL Cholesterol (40 - ) mg/dL None Operations: None Procedures: None Summary of Care Provided: Tray Brooks is a 54 year old M with a past medical history of hypertension, cardiomyopathy(35-40% EF), coronary artery disease, OR in 2012, hypertension, obesity, chronic renal failure stage III, LATRICIA? (has never had a sleep study), left ventricular hypertrophy, mild diastolic dysfunction, tremor, tobacco dependence in remission, marijuana usage and alcohol use who was admitted to the inpatient rehab unit at [facility] on 11/25/2019 with debility secondary to a hemorrhagic right cerebellar CVA on 11/21/2019. He received 3 hours of therapy daily while in the rehab unit. At presentation to the rehab unit lab was significant for an increased hemoglobin, increased BUN/creatinine ratio and a creatinine of 1.52 which would be consistent with stage III chronic renal failure. His potassium was low at 2.9. Potassium was supplemented and hydrochlorothiazide was discontinued. Prior to discharge potassium was 3.6 and the BUN was 25 with a creatinine of 1.14. His lungs were clear to auscultation and he had no peripheral edema. He denied dyspnea on exertion and orthopnea. A lipid panel showed triglycerides of 172, a cholesterol of 194, LDL of 122 and a low HDL at 38. He is on a high intensity stain currently and will need a liver profile, lipid panel and a CK in 6 weeks. Tray had an OR in 2013 and has not seen a [employer] rails consultant or had a stress or cardiac cath since then. He has had multiple strokes. R cerebellar hemorrhagic CVA, left thalamus ischemic lacunar infarcts and pontine lacunar ischemic infarcts. MRI shows moderate cerebral atrophy and small vessel ischemic changes of the supratentorial white matter consistent with mild vessel disease. CTA of the brain showed no significant cervical carotid occlusive disease by NASCET criteria. There was wall thickening involving the left internal carotid artery which was more apparent in [address] in 2012. Because of the CAD, CM and the fact that he has had multiple lacunar infarcts I suspect he may have PAF. He was agreeable to seeing a ruby on rails consultant and an appt with Dr. uHntley was made for him prior to leaving the rehab unit. He was also given a RX for a 30 day event monitor. Tray did very well in therapy and prior to DC he was ambulating with a straight cane at A with occasional unsteadiness but no gross loss of balance. He was able to go up and down 5 steps with 2 rails. He was independent with grooming, toileting, bathing and dressing. Tray is anxious to go back to work but, he is at only 60-70% of his baseline per his own admission. PT and OT both recommended ongoing therapy. He was discharged home on 12/04/19. He will be using a straight cane. Rxs for new meds were given and he was given a list of the medications he will be taking at home. He will discontinue all medications not on the list until he sees Dr. Lanza. He was given a RX for a 30 day event monitor and this will be mailed to him. He has an appt with cardiology and neurology and Dr. Lanza. No work until cleared by Dr. Lanza or neurology. He also sees nephrology and will follow up with them as well. He was given printed literature about atrial fibrillation and cardiomyopathy. He was advised of the sx of CHF and instructed to consume a low fat, low salt diet. He will weigh himself daily in the AM and keep a record. Alert and oriented X 3, NAD, appropriate, cooperative, sitting in the recliner at the bedside PERRL, EOMI, the small hematoma on his head from the fall when he had a stroke has resolved MM are moist] and there are no mucosal lesions The neck is supple and the trachea is midline, there are no cervical nodes, no carotid bruits, carotids have brisk upstroke and good pulse volume Lungs are mildly diminished-likely secondary to body habitus. Lungs are clear to auscultation with no rales and no wheezes. Heart has a RRR with no gallop and no rub. There is no ectopy and no murmur. Abdomen is soft, NT, ND and there are normal bowel sounds heard in all quad rants. There was no guarding with palpation CN's II - XII are grossly intact. Decreased sensation on the right face, right arm and right leg. Ataxia Right leg with gait. No neglect. Visual steel are intact. No peripheral edema, no calf tenderness Skin is warm and dry, no rashes, no breakdown. Mood is normal . This note was [facility] with [facility]. It may contain incorrect words, spelling, and punctuation that were not noted in checking the note before signing. Patient Problems: Active and Suspected Problems Debility (Acute) due to R cerebellar hemorraghic CVA Right-sided nontraumatic intracerebral hemorrhage of cerebellum (Acute) Hypokalemia (Acute) Abnormal MRI of head (Acute) 11/22/19 R cerebellar hemorrhage 1.6cm. Moderate cerebral atrophy and small vessel ischemic chnages of the supratentorial white matter with chronic pontine and left thalamic infarcts. - Physical Exam Vitals/I&O's: Vital Signs Temp Pulse Resp BP Pulse Ox 97.8 F 66 16 131/61 H 94 12/04/19 09:07 12/04/19 09:07 12/04/19 09:07 12/03/19 19:22 12/04/19 09:07 Oxygen Delivery Method Room Air Weight: 262 lb 5.601 oz Body Mass Index (BMI) 38.7 Orthostatic Vital Signs Start: 11/26/19 00:28 Freq: Status: Active Protocol: Activity Type Activity Date Activity User E-Sign Co-Sign Detail Recorded Client Recorded Date Recorded By Document 11/26/19 00:29 CAK [id number] 11/26/19 06:27 CAK 11/26/19 00:29 Orthostatic Vitals Standing -Blood Pressure (90/60-120/80 mm Hg) 163/109 H -Extremity Use Right Arm -Pulse Rate (60-100 beats/min) 65 Sitting -Blood Pressure (90/60-120/80 mm Hg) 137/87 H -Extremity Use Right Arm -Pulse Rate (60-100 beats/min) 62 Lying -Blood Pressure (90/60-120/80 mm Hg) 158/97 H -Extremity Use Right Arm -Pulse Rate (60-100 beats/min) 64 Intake and Output for Last 24 Hours 12/02/19 12/03/19 12/04/19 23:59 23:59 23:59 Intake Total 1200 / 1200 1040 / 1040 Output Total 1800 / 1800 Balance 1200 / 1200 -760 / -760 Current Medications Acetaminophen (Tylenol) 650 mg PO Q6H PRN PRN PRN Reason: Pain Score 1-1010 Last Admin: 12/02/19 06:51 Dose: 650 mg Documented by: Atorvastatin Calcium (Lipitor) 80 mg PO QHS [facility] Last Admin: 12/03/19 19:48 Dose: 80 mg Documented by: Bisacodyl (Dulcolax) 10 mg RECTAL .PRN X 1 PRN PRN Reason: Constipation Carvedilol (Coreg) 25 mg PO BID [facility] Last Admin: 12/04/19 10:44 Dose: 25 mg Documented by: Hydralazine HCl (Apresoline) 50 mg PO TID [facility] Last Admin: 12/04/19 06:22 Dose: 50 mg Documented by: Magnesium Hydroxide (Milk Of Magnesia) 30 ml PO .PRN X 1 PRN PRN Reason: Constipation Meclizine HCl (Antivert) 25 mg PO Q6H PRN PRN PRN Reason: Vertigo Last Admin: 12/03/19 08:54 Dose: 25 mg Documented by: Melatonin (Melatonin) 5 mg PO QHS [facility] Last Admin: 12/03/19 19:49 Dose: 5 mg Documented by: Nifedipine (Procardia Xl) 30 mg PO BID [facility] Last Admin: 12/04/19 10:44 Dose: 30 mg Documented by: Nitroglycerin (Nitrostat) 0.4 mg SUBLINGUAL Q5M PRN PRN Reason: CARDIAC/CHEST PAIN Ondansetron HCl (Zofran Odt) 4 mg PO Q6H PRN PRN PRN Reason: NAUSEA Senna/Docusate Sodium (Senokot-S, Chasity-Colace) 2 tablet PO BID [facility] Last Admin: 12/04/19 10:44 Dose: Not Given Documented by: Trazodone HCl (Desyrel) 50 mg PO QHS [facility] Last Admin: 12/03/19 19:48 Dose: 50 mg Documented by: Discharge Activity: May Drive, May Shower Weight Bearing Status: Full weight bearing Call your doctor if you observe: Fever of 101 or Higher, Inability to urinate, Inability to have a bowel movement, Shortness of breath, Dizziness, Fainting spells, Swelling in the ankles, Chest pain, Increased palpitations (irregular heartbeat), Calf discomfort, - - Go the ED or call 911 immediately if sudden onset: 1. facial droop 2. slurred speech or inability to get words out 3. weakness or numbness on 1 side of the face, arm or leg. 4. vertigo or room spinning 5. loss of vision or trouble seeing in one eye 6. Confusion 7. Trouble walking or maintaining balance and trouble with coordination 8. Sudden severe headache with no known cause Home Medications: Medications to take at Discharge Acetaminophen [Tylenol Tablet] 650 mg PO Q6H PRN PRN tablet 12/04/19 Atorvastatin Calcium [Lipitor] 80 mg PO QHS #30 tablet 12/04/19 Carvedilol [Coreg (Beta Nuvia)] 25 mg PO BID #60 tablet 12/04/19 Meclizine HCl [Antivert] 25 mg PO Q6H PRN PRN #30 tab 12/04/19 Nifedipine [Procardia Xl] 30 mg PO BID #60 tab.er.24 12/04/19 Nitroglycerin (INPATIENT USE) [Nitrostat] 0.4 mg SUBLINGUAL Q5M PRN #1 bottle 12/04/19 hydrALAZINE [Apresoline] 50 mg PO TID #90 tab 12/04/19 traZODone [Desyrel] 50 mg PO QHS #30 tab 12/04/19 Following Prescrptions Were Given to Patient: Meclizine HCl [Antivert] 25 mg PO Q6H PRN PRN #30 tab PRN Reason: Vertigo Transmission Status: Pending to [facility] hydrALAZINE [Apresoline] 50 mg PO TID #90 tab Transmission Status: Pending to [facility] Carvedilol [Coreg (Beta Nuvia)] 25 mg PO BID #60 tablet traZODone [Desyrel] 50 mg PO QHS #30 tab Transmission Status: Pending to [facility] Atorvastatin Calcium [Lipitor] 80 mg PO QHS #30 tablet Nitroglycerin (INPATIENT USE) [Nitrostat] 0.4 mg SUBLINGUAL Q5M PRN #1 bottle PRN Reason: Cardiac/Chest Pain Transmission Status: Pending to [facility] Nifedipine [Procardia Xl] 30 mg PO BID #60 tab.er.24 Transmission Status: Pending to [facility] Primary Care Physician: Maribel Lanza, [Primary Care Provider] - Please Follow Up With: Dr Chilango Mckeon-neuro Please Follow Up With: Dr Maribel Crowe-PCP Please Follow Up With: Dr Delgado-[employer] consultant Patient Instructions: What Is Atrial Flutter/Atrial Fibrillation?, Cardiomyopathy Disposition: Home - with OP PT/OT Minutes spent on discharge:: 40 Medical Necessity - Tobacco Use Smoking Status: Former smoker Tobacco Use: Cigarettes Meaningful Use Info Meaningful Use Diagnoses (Choose all that apply): Hemorrhagic CVA - CVA Therapy Assessed for PT,OT and/or ST?: Yes - Ischemic Stroke Antithrombotic order at d/c?: Yes Dx of Atrial fib/flutter?: No Anticoagulant at discharge?: No Reason anticoagulant not ordered: Treatment not Indicated Statins at discharge?: Yes Primary Dx Acute Ischemic CVA?: No IV tPA ordered during stay?: No Reason IV t-PA not ordered: Treatment not Indicated Inpatient E&M: [id number] [facility]
[2019-12-04 12:34] VITALS: BMI 38.7
--- NOTE | 2019-12-04 14:15 | NURSING ---
pt discharged home via car transport with daughter rolando. pt verbalizes understanding of discharge instructions.
== END 2019-12-04 14:00 | disposition home or self-care (01) | DRG 57 ==
PROVIDERS: Admitting Provider Internal Medicine; PCP Internal Medicine; Visit Provider Internal Medicine
DX: I69.393 Ataxia following cerebral infarction (principal); I42.9 Cardiomyopathy, unspecified; I25.10 Atherosclerotic heart disease of native coronary artery without angina pectoris; G47.33 Obstructive sleep apnea (adult) (pediatric); N18.3 Chronic kidney disease, stage 3 (moderate); E66.9 Obesity, unspecified; Z68.38 Body mass index [BMI] 38.0-38.9, adult; R25.1 Tremor, unspecified; Z91.19 Patient's noncompliance with other medical treatment and regimen; E87.6 Hypokalemia; I12.9 Hypertensive chronic kidney disease with stage 1 through stage 4 chronic kidney disease, or unspecified chronic kidney disease; I25.2 Old myocardial infarction; Z87.891 Personal history of nicotine dependence
CPT/HCPCS: 36415; 80048; 80053; 80061; 82040; 83735; 84100; 85027; 92523; 92610; 94762; 97110; 97112; 97116; 97162; 97166; 97530; 97535; 97802; 97803; 99251; G0463

== ENCOUNTER → 2020-02-02 | Outpatient (CLI) | payer OTHER, SELFPAY ==
[2020-01-14 07:21] VITALS: BMI 39.3
--- NOTE | 2020-02-02 09:24 | STRESSREP ---
Stress Test Report Pharmacologic myocardial perfusion stress test. 54-year-old man with a history of known coronary artery disease. Stress protocol: Resting EKG demonstrates normal sinus rhythm with a rate of 63 bpm and incomplete left bundle branch block is noted resting blood pressure is 170/90 mmHg. 0.4 mg of regadenoson was infused per usual protocol. Continuous EKG monitoring was performed. The maximum heart rate was 89 bpm which was 54% of max impacted heart rate. At rest there were no ST or T wave changes noted suggest abnormal flow reserve at peak infusion nonspecific ST-T wave changes were noted with no meet the criteria for abnormal flow reserve. Myocardial perfusion protocol. 15.0 mCi of technetium 99m sestamibi was injected at rest. 0.4 mg of regadenoson was infused per usual protocol peak infusion 45.0 mCi of technetium 99m sestamibi was injected stress images were obtained stress and rest images were reconstructed and compared in the short axis vertical long horizontal long axis. Gated images were also obtained Perfusion SPECT analysis: Review of the stress images demonstrate normal uptake of tracer noted in the septum and anterior wall. There is a medium size lesion noted in the basal inferior wall suggestive of a perfusion defect. There is mild reduction of perfusion noted in the mid inferior wall on the stress images. The resting images demonstrate improvement in the mid inferior wall suggesting a mild to moderate amount of mid inferior ischemia with a persistent defect noted in the basal inferior wall suggesting a basal inferior infarct. Gated SPECT analysis: The gated ejection fraction is 46%. Conclusion: 1.Mild ischemic cardiomyopathy. 2. mild mid inferior ischemia. 3. previous basal inferior infarct
== END | disposition home or self-care (01) ==
LOC: CVS 06:19
PROVIDERS: PCP Internal Medicine; Referring Provider Internal Medicine Cardiovascular Disease; Visit Provider Internal Medicine Cardiovascular Disease
DX: I42.8 Other cardiomyopathies (principal)
CPT/HCPCS: 78452; 93017; A9500; A4216; J2785